=== PATIENT | male | born 1940 | race Caucasian/White ===

== ENCOUNTER → 2022-09-14 | Outpatient (CLI) | payer OTHER ==
--- NOTE | 2022-09-14 13:50 | DIREP ---
PROCEDURE:XRAY SHOULDER MIN 2 VWS-LT COMPARISON:None. INDICATIONS:Z00.00 HISTORY AND PHYSICAL EVALUATION FINDINGS: BONES:No fracture identified. Degenerative change, including marginal osteophytosis and subchondral sclerosis JOINTS:Moderate glenohumeral and AC joint space narrowing. No evidence of dislocation. SOFT TISSUES:Normal. OTHER:Normal. CONCLUSION: 1. No fracture or evidence of joint dislocation. 2. Degenerative change. Dictated by: Hoang Herrera MD on 09/14/2022 at 01:48 PM
--- NOTE | 2022-09-15 16:08 | DIREP ---
PROCEDURE:XRAY SPINE LUMBAR 2-3 VWS COMPARISON:None. INDICATIONS:Z00.00 HISTORY AND PHYSICAL EVALUATION TECHNIQUE:AP, lateral, and coned down lateral views of the lumbar spine are provided. FINDINGS: ALIGNMENT:Leftward curvature lower lumbar spine VERTEBRAE:No visible compression fracture. Endplate osteophytes throughout the spine. Bones are osteopenic. Facet arthropathy mid to lower lumbar spine is mild. DISK SPACES:Disc space height loss L2-3, L3-4, L4-5 and L5-S1 SPONDYLOLISTHESIS:None. SACROILIAC JOINTS:Normal. OTHER:No additional findings CONCLUSION:Multilevel degenerative disc disease and facet arthropathy. Dictated by: Luis Miguel Villagomez M.D. on 09/15/2022 at 04:06 PM
== END | disposition home or self-care (01) ==
LOC: RAD 10:45
PROVIDERS: ATTEND Nurse Practitioner
DX: M19.012 Primary osteoarthritis, left shoulder (principal); M43.8X7 Other specified deforming dorsopathies, lumbosacral region; M51.36 Other intervertebral disc degeneration, lumbar region; M47.816 Spondylosis without myelopathy or radiculopathy, lumbar region; Z00.00 Encounter for general adult medical examination without abnormal findings; M25.712 Osteophyte, left shoulder
CPT/HCPCS: 72100; 73030-LT